=== PATIENT | female | born 1955 | race Caucasian/White ===

== ENCOUNTER 2017-02-18 08:32 | Emergency (ER) | payer BC ==
--- NOTE | ~2017-02-18 | CR63 ---
[facility] A Service of [facility] RADIOLOGY TEXT RESULTS PATIENT: TIERRA RODRIGUEZ LOCATION: SED : 59 UNIT #: [id number] AGE: [address]: Julián Christie MD SEX: F ORDER DR: [id number] [address] [address] [id number] E MR#: [id number] Acc #: [id number] NAME: TIERRA RODRIGUEZ : 1955 SEX: F STUDY DATE/TIME: 02/18/2017 09:26 UNIT: SED ROOM: STUDY DESCRIPTION: CR Chest 2 View Attending Physician: Julián Christie M.D. Ordering Physician: Julián Christie M.D. Primary Care Physician: Jose Manuel Olea M.D. MEDICAL IMAGING REPORT This report is preliminary unless electronic signature is present. EXAM Chest 2 views 02/18/2017 0926 hours HISTORY 62-year-old with upper back pain with deep inspiration since yesterday. History of hypertension, atrial fibrillation and acid reflux. COMPARISON 01/09/2016. FINDINGS Upright PA and lateral views of the chest demonstrate heart size at the upper limits of normal which is unchanged. There is a mildly tortuous aorta also stable. The pulmonary vascularity is normal. The lungs are clear and there are no effusions. No bone lesions are seen. IMPRESSION No acute cardiopulmonary findings. No appreciable change from 01/09/2016. Dictated by... Jody Michele M.D. THIS IS AN ELECTRONICALLY VERIFIED REPORT Jody Michele M.D. at 02/18/2017 2:31 PM HAN/hannah TD: 02/18/2017 10:49 JOB #: [id number] MEDICAL IMAGING REPORT Page 1 of 1
--- NOTE | ~2017-02-18 | EKG ---
PATIENT: TIERRA RODRIGUEZ UNIT #: [id number] Ventricular Rate: 62 BPM Atrial Rate: 62 BPM P-R Interval: 198 ms QRS Duration: 88 ms Q-T Interval: 388 ms QTC Calculation(Bezet): 393 ms P [place]: 64 degrees Calculated R [place]: 4 degrees Calculated T [place]: 36 degrees Diagnosis Line: Normal sinus rhythm Diagnosis Line: Normal ECG Diagnosis Line: When compared with ECG of 09-JAN-2016 12:12, Diagnosis Line: No significant change was found Diagnosis Line: Confirmed by NANO ALDANA MD ([id number]) on Diagnosis Line: 02/24/2017 8:29:22 AM INTERPRETING MD: KATYA MILLER
[~2017-02-18 08:32] MED LIST: ALBUTEROL17 G1 IH; BENTYL10 MG DOB; BENTYL10 MG PO; CLARITIN D PO; CLARITIN10 M2 PO; COMBIPATCH1 PATCH.BW TOP; CYTOMEL; LIOTHYRONINE SO5 MCG PO; LOMOTIL TABLET1 TAB PO; MED FOR DEPRESSION; METFORMIN HCL500 M1 PO; METOPROLOL TAR25 MG PO; OMEPRAZOLE40 MG PO; PHENTERMINE H37.5 M1 PO; PRADAXA75 MG PO; PREDNISONE PO; SINGULAIR PO; SYNTHROID PO; TERBINAFINE HC250 MG PO; VITAMIN D1000 UNI1 PO; VITAMIN D5000 UNIT PO
[2017-02-18] MEDS ORDERED: ALVESCO6.1 G1 (08:39)
== END 2017-02-18 10:20 | disposition home or self-care (01) ==
LOC: SED 08:32
DX: M62.830 Muscle spasm of back (principal); Z88.5 Allergy status to narcotic agent; Z88.1 Allergy status to other antibiotic agents; Z79.899 Other long term (current) drug therapy
CPT/HCPCS: 71020; 93005; 99284